=== PATIENT | female | born 1940 | race Caucasian/White ===

== ENCOUNTER 2016-10-13 07:03 | Outpatient (CLI) | payer MEDICARE ==
[2016-10-13 07:49] LABS: ALT (SGPT) 13 U/L (0-55); AST (SGOT) 21 U/L (5-34); Albumin 3.6 g/dL (3.4-4.8); Alkaline Phosphatase 96 U/L (40-150); Anion Gap 12 mmol/L (10-20); BUN (Urea Nitrogen) 12 mg/dL (9.8-20.1); Bilirubin, Direct 0.1 mg/dL (0.1-0.3); Bilirubin, Total Less than 0.3 mg/dL (0.2-1.2); Calc. Creatinine Clearance 0 mL/min (70-130); Calcium 8.7 mg/dL (7.8-10.44); Carbon Dioxide 25 mmol/L (23-31); Cardiac Risk 2.7 (Less than 4.5); Chloride 108 mmol/L (98-107); Cholesterol 161 mg/dL (< 200 Desired); Estimated GFR-MDRD 71; Glucose 83 mg/dL (83-110); HDL Cholesterol 60 mg/dL (>60 Neg Risk); LDL Cholesterol, Calculated 80 mg/dL; Potassium 4.2 mmol/L (3.5-5.1); Protein, Total 5.7 g/dL (5.8-8.1); Sodium 141 mmol/L (136-145); Triglycerides 106 mg/dL (Less than 150)
== END 2016-10-13 07:04 ==
LOC: MADLABBHPM 07:03
PROVIDERS: ATTEND Family Medicine
DX: E03.9 Hypothyroidism, unspecified (principal)
CPT/HCPCS: 36415; 80048; 80061; 80076; 84443

== ENCOUNTER 2017-09-29 06:49 | Outpatient (CLI) | payer MEDICARE ==
[2017-09-29 09:47] LABS: Clarity Clear (Clear); Nitrite Negative (Negative)
[2017-09-29 09:48] LABS: Bilirubin Negative (Negative); Blood, Urine Negative (Negative); Glucose, Urine (Dipstick) Negative (Negative); Leukocyte Negative (Negative); Protein, Urine (Dipstick) Negative (Neg-Trace); Urobilinogen 0.2 mg/dL (0.2-1.0)
[2017-09-29 09:49] LABS: Bacteria/HPF Rare-Few HPF (None Seen); RBC/HPF 0-3 HPF (0-3); WBC/HPF 0-3 HPF (0-3)
[2017-09-29 09:54] LABS: Mean Corpuscular HGB CONC 32.7 g/dL (32.0-36.0); Mean Corpuscular Hemoglobin 31.1 pg (27.0-31.0); Platelet Count 103 thou/uL (130-400); RBC Distribution Width 12.6 % (11.5-14.5); Red Blood Cell (RBC) Count 4.49 mill/uL (4.20-5.40); White Blood Cell (WBC) Count 3.5 thou/uL (4.8-10.8)
[2017-09-29 09:55] LABS: #Eosinphils 0.1 thou/uL (0.0-0.7); #Lymphocytes 1.4 thou/uL (1.20-3.40); #Monocytes 0.3 thou/uL (0.11-0.59); #Neutrophils 1.6 thou/uL (1.40-6.50); %Basophils 1.3 % (0.0-1.0); %Eosinophils 3.5 % (0.0-10.0); %Lymphocytes 38.8 % (21.0-51.0); %Monocytes 9.7 % (0.0-10.0); %Neutrophils 46.7 % (42.0-75.0); Mean Platelet Volume 12.6 fL (7.4-10.4)
[2017-09-29 09:57] LABS: BUN (Urea Nitrogen) 14 mg/dL (9.8-20.1); Bilirubin, Total 0.5 mg/dL (0.2-1.2); Calc. Creatinine Clearance 0 mL/min (70-130); Calcium 9.2 mg/dL (7.8-10.44); Carbon Dioxide 26 mmol/L (23-31); Chloride 108 mmol/L (98-107); Estimated GFR-MDRD 69; Glucose 86 mg/dL (83-110); Potassium 3.7 mmol/L (3.5-5.1); Protein, Total 6.4 g/dL (5.8-8.1); Sodium 143 mmol/L (136-145)
[2017-09-29 09:58] LABS: ALT (SGPT) 13 U/L (8-55); AST (SGOT) 22 U/L (5-34); Albumin 3.7 g/dL (3.4-4.8); Alkaline Phosphatase 78 U/L (40-150); Globulin 2.7 g/dL (2.4-3.5)
[2017-09-29 09:59] LABS: Anion Gap 13 mmol/L (10-20)
== END 2017-09-29 06:50 | disposition home or self-care (01) ==
LOC: MADEKG 06:49
PROVIDERS: ATTEND Family Medicine
DX: Z01.818 Encounter for other preprocedural examination (principal)
CPT/HCPCS: 36415; 80053; 81001; 85025

== ENCOUNTER 2017-10-14 13:17 | Outpatient (CLI) | payer MEDICARE ==
[2017-10-14 16:54] LABS: Bilirubin Negative (Negative); Blood, Urine Negative (Negative); Clarity Clear (Clear); Glucose, Urine (Dipstick) Negative (Negative); Leukocyte Negative (Negative); Nitrite Negative (Negative); Protein, Urine (Dipstick) Negative (Neg-Trace); Urobilinogen 0.2 mg/dL (0.2-1.0); pH, Urine 6.5 (5.0-9.0)
[2017-10-14 17:01] LABS: RBC/HPF None Seen HPF (0-3)
[2017-10-14 17:02] LABS: Bacteria/HPF Rare-Few HPF (None Seen); Squamous Epithelial 0-3 HPF (0-3); WBC/HPF None Seen HPF (0-3)
== END 2017-10-14 13:18 | disposition home or self-care (01) ==
LOC: MADLAB 13:17
PROVIDERS: ATTEND Family Medicine
DX: R82.90 Unspecified abnormal findings in urine (principal); R19.4 Change in bowel habit
CPT/HCPCS: 81001; 82274

== ENCOUNTER 2018-09-27 07:46 | Emergency (ER) | payer MEDICARE ==
--- NOTE | 2018-09-27 09:01 | RAD ---
CHEST TWO VIEWS: HISTORY: Shortness of breath. COMPARISON: 10/31/2008 FINDINGS: A single view of the chest shows a normal sized cardiomediastinal silhouette. There is opacity in th e right upper lobe, which likely represents collapse/atelectasis of the right upper lobe. There is e levation of the medial aspect of the right hemidiaphragm, likely secondary to the atelectasis. No de finite pleural effusion is seen. IMPRESSION: Right upper lobe consolidation versus collapse. A central obstructing mass is a possibility. A CT c hest with contrast is recommended for further evaluation. POS: [facility]
[2018-09-27 09:37] LABS: #Basophils 0.1 thou/uL (0.0-0.2); #Eosinphils 0.1 thou/uL (0.0-0.7); #Lymphocytes 1.1 thou/uL (1.20-3.40); #Monocytes 0.4 thou/uL (0.11-0.59); #Neutrophils 4.5 thou/uL (1.40-6.50); %Basophils 1.1 % (0.0-1.0); %Eosinophils 1.2 % (0.0-10.0); %Lymphocytes 18.1 % (21.0-51.0); %Monocytes 6.3 % (0.0-10.0); %Neutrophils 73.3 % (42.0-75.0); Hemoglobin 14.6 g/dL (12.0-16.0); Mean Corpuscular HGB CONC 31.7 g/dL (32.0-36.0); Mean Corpuscular Volume 94.6 fL (78.0-98.0); Mean Platelet Volume 10.1 fL (7.4-10.4); Platelet Count 179 thou/uL (130-400); RBC Distribution Width 13.1 % (11.5-14.5); Red Blood Cell (RBC) Count 4.87 mill/uL (4.20-5.40); White Blood Cell (WBC) Count 6.2 thou/uL (4.8-10.8)
[2018-09-27 09:52] LABS: Anion Gap 16 mmol/L (10-20); BUN (Urea Nitrogen) 8 mg/dL (9.8-20.1); Calc. Creatinine Clearance 0 mL/min (70-130); Calcium 9.6 mg/dL (7.8-10.44); Carbon Dioxide 23 mmol/L (23-31); Chloride 107 mmol/L (98-107); Estimated GFR-MDRD 70; Glucose 83 mg/dL (83-110); Potassium 3.7 mmol/L (3.5-5.1); Sodium 142 mmol/L (136-145)
--- NOTE | 2018-09-27 11:02 | CT ---
CT CHEST WITH CONTRAST: HISTORY: Shortness of breath for two months. Right upper lung mass versus collapse versus consolidation. COMPARISON: Chest x-ray from 09/27/2018. TECHNIQUE: Multiple contiguous axial images were obtained in a CT of the chest with contrast. Coronal reformats were performed. FINDINGS: There is soft tissue density in the right upper lobe. No central obstructing mass is identified. Th e soft tissue density in the right upper lobe enhances heterogeneously with contrast. The superior a spect of this has areas of air bubbles within the right upper lobe. There is a small layering right pleural effusion. Scattered nodules are seen throughout the right lung, measuring up to 5 mm in size . No significant left pulmonary nodules or pleural effusions are seen. There are mildly enlarged hilar and mediastinal lymph nodes. There is slight narrowing of the pulmon eyad arterial branches to the right lung. The chest wall soft tissues are unremarkable. Mild degenerative changes are seen in the spine. Ther e is a soft tissue density mass between the right adrenal gland and kidney, measuring 3 cm in size. This has a mean Hounsfield unit value of 17. The other visualized subdiaphragmatic structures are un remarkable. IMPRESSION: 1. There is a mass like opacity in the right upper lobe. This appears expansile, as there is narrow ing of the pulmonary artery branches to the right lung. This is therefore concerning for malignancy. Scattered pulmonary nodules throughout the right lung could represent metastatic disease. 2. There is a small right pleural effusion. 3. Although malignancy is the preferential diagnosis, significant consolidation and/or pneumonia is stil a possibility. Correlate with white blood cell count. 4. Right abdominal/retroperitoneal mass between the kidney and adrenal glands is nonspecific. POS: [facility]
[2018-09-27] MEDS ORDERED: Iopamidol 370 76% 100 ML VIAL ONE (11:41)
== END 2018-09-27 11:22 | disposition short-term general hospital (02) ==
LOC: MADERS 07:46
DX: R91.8 Other nonspecific abnormal finding of lung field (principal); R06.02 Shortness of breath; F32.9 Major depressive disorder, single episode, unspecified; M19.90 Unspecified osteoarthritis, unspecified site; Z79.899 Other long term (current) drug therapy
CPT/HCPCS: 71046; 71260; 80048; 85025; 87040; 93005; Q9967